=== PATIENT | female | born 1970 | race Caucasian/White ===

== ENCOUNTER 2017-03-11 02:14 | Emergency (ER) | payer OTHER ==
[2017-03-11 02:36] VITALS: BP 141/88; PULSE 70; TEMP 97.9; BMI 33.1
[2017-03-11] MEDS ORDERED: OXYCODONE/APAP 5/325MG COMBO TABLET PO ONE (03:54)
[2017-03-11] MEDS ORDERED: OXYCODONE/APAP 5/325MG COMBO TABLET ONE (04:01)
[2017-03-11] MEDS ORDERED: ACETAMINOPHEN 325 MG TABLET (FP) ONE (04:06)
[2017-03-11] MEDS ORDERED: ACETAMINOPHEN 325 MG TABLET (FP) PO ONE (04:06)
[2017-03-11 04:28] LABS: BASOPHIL 0.6 % (0-2.0); EOSINOPHIL 5.7 % (0-4.5); MCH 29.3 pg (25.7-33.7); MCHC 32.9 g/dl (32.0-36.0); MEAN PLT VOLUME 9.2 fl (7.5-11.1); NEUTROPHILS 54.2 % (42.8-82.8); PLATELET COUNT 213 K/MM3 (134-434); RDW 14.2 % (11.6-15.6); WHITE BLOOD COUNT 8.8 K/mm3 (4.0-10.0)
[2017-03-11 04:52] LABS: ALBUMIN 3.6 g/dl (3.4-5.0); ALK PHOS 43 U/L (45-117); ANION GAP 9 (8-16); BILIRUBIN,TOTAL 0.4 mg/dL (0.2-1.0); CALCIUM 8.8 mg/dL (8.5-10.1); CO2 28 mmol/L (21-32); CREATININE 0.7 mg/dL (0.55-1.02); GLUCOSE,RANDOM 185 mg/dL (74-106); SGOT/AST 15 U/L (15-37); SGPT/ALT 25 U/L (12-78); TOT PROT 6.6 g/dl (6.4-8.2)
--- NOTE | 2017-03-11 05:29 | PDOC ---
History of Present Illness - General Chief Complaint: Ear Problem Stated Complaint: LFT EAR PAIN Time Seen by Provider: 03/11/17 03:16 History Source: Patient Exam Limitations: No Limitations - History of Present Illness Initial Comments: 03/11/17 05:25 46yo Female patient w/ PmHx: HLD presents to ED c/o left ear pain and swelling. Patient states she noticed swelling 2 weeks ago but ignored it. She states pain began around 1030pm 03/10/17. Ibuprofen taken with no relief. Associated h/a and blurred vision reported. LNMP February 14. No other complaints at this time. Timing/Duration: getting worse, other (2 Weeks) Severity: moderate Modifying Factors: improves with: medication Associated Symptoms: denies: denies symptoms, chest pain, cough, diaphoresis, fever/chills, headaches, loss of appetite, malaise, nausea/vomiting, rash, seizure, shortness of breath, syncope, weakness, other Aspirin Received prior to arrival: No: no aspirin today, unknown, 81 mg x 1, 81 mg x 2, 81 mg x 3, 81 mg x 4, 325 mg x 1, provided at home, provided by EMS, provided by ED [facility] Contraindications(Core Measure): No: Allergy, Other, Active Blding w/i 24 hrs., Plavix, Receiving Warfarin Beta Feng Contraindications(Core Measure): No: Not Prescribed, Allergy, Bradycardia (HR <60bpm), Advanced Heart Block, Pacemaker, Other Past History - Travel Traveled outside of the country in the last 30 days: No Close contact w/someone who was outside of country & ill: No - Past Medical History Allergies/Adverse Reactions: Allergies Allergy/AdvReac Type Severity Reaction Status Date / Time No Known Allergies Allergy Unverified 03/11/17 02:27 Home Medications: Ambulatory Orders Ferrous Sulfate 325 mg PO DAILY 04/17/16 Metformin HCl [Metformin HCl ER] 500 mg PO PRN PRN 04/17/16 Azithromycin [Zithromax -] 250 mg PO DAILY #7 tablet 03/11/17 Tramadol HCl 50 mg PO Q6H PRN #8 tablet MDD 4 TABS 03/11/17 Diabetes: No Hypercholesterolemia: No - Surgical History Abdominal Surgery: Yes (GASTRIC BY PASS) Orthopedic Surgery: Yes (FOOT SURGERY) - Immunization History Td Vaccination: Yes - Psycho/Social/Smoking Cessation Hx Anxiety: No Suicidal Ideation: No Smoking Status: Yes Smoking History: Never smoked Number of Cigarettes Smoked Daily: 12 'Breaking Loose' booklet given: 04/17/16 Hx Alcohol Use: No Drug/Substance Use Hx: No Review of Systems - Review of Systems Able to Perform ROS?: Yes Is the patient limited [place] Citizen proficient: No HEENTM: Yes: Ear Pain All Other Systems: Reviewed and Negative *Physical Exam - Vital Signs Last Vital Signs Temp Pulse Resp BP Pulse Ox 97.9 F 70 18 141/88 99 03/11/17 02:22 03/11/17 02:22 03/11/17 02:22 03/11/17 02:22 03/11/17 02:22 - Physical Exam General Appearance: Yes: Nourished, Appropriately Dressed, Apparent Distress, Moderate Distress. No: Mild Distress, Severe Distress HEENT: positive: EOMI, MARIA ALEJANDRA, Normal ENT Inspection, Normal Voice, Symmetrical, TMs Normal, Pharynx Normal, Other (Lt Mastoid swelling and tenderness on examination.). negative: Pharyngeal Erythema, Tonsillar Exudate, Tonsillar Erythema, Nasal Congestion, Rhinorrhea, Sinus Tenderness, TM Bulging, TM Dull, TM Erythema Neck: positive: Trachea midline, Normal Thyroid, Supple. negative: Rigid, Decreased range of motion, Stridor, Lymphadenopathy (R), Lymphadenopathy (L), Rigidity Respiratory/Chest: positive: Lungs Clear, Normal Breath Sounds. negative: Chest Tender, Respiratory Distress, Accessory Muscle Use, Labored Respiration, Rapid RR Cardiovascular: positive: Regular Rhythm, Regular Rate Musculoskeletal: positive: Normal Inspection. negative: CVA Tenderness Extremity: positive: Normal Capillary Refill, Normal Inspection, Normal Range of Motion. negative: Pedal Edema, Swelling Integumentary: positive: Normal Color, Dry, Warm. 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, Fully Oriented, Alert, Normal Mood/ Affect, Normal Response, Motor Strength 01/10 ED Treatment Course - LABORATORY CBC & Chemistry Diagram: 03/11/17 04:00 03/11/17 04:00 - ADDITIONAL ORDERS Additional order review: Laboratory Results 03/11/17 04:00 Sodium 140 Potassium 3.8 Chloride 103 Carbon Dioxide 28 Anion Gap 9 BUN 14 Creatinine 0.7 Creat Clearance w eGFR > 60 Random Glucose 185 H Calcium 8.8 Total Bilirubin 0.4 AST 15 ALT 25 Alkaline Phosphatase 43 L Total Protein 6.6 Albumin 3.6 03/11/17 04:00 RBC 4.66 MCV 89.0 MCHC 32.9 RDW 14.2 MPV 9.2 Neutrophils % 54.2 Lymphocytes % 32.1 Monocytes % 7.4 Eosinophils % 5.7 H Basophils % 0.6 - RADIOLOGY Radiology Studies Ordered: Category Date Time Status HEAD CT WITHOUT CONTRAST [CT] Stat CT Scan 03/11/17 03:54 Ordered SOFT TISSUE NECK CT W/O CONTR [CT] Stat CT Scan 03/11/17 03:[address] W/O CONTRAST [CT] Stat CT Scan 03/11/17 03:54 Ordered - Medications Given in the ED: ED Medications Discontinued Medications Generic Name Dose Route Start Last Admin Trade Name Freq PRN Reason Stop Dose Admin Acetaminophen 650 mg 03/11/17 04:06 03/11/17 04:12 Tylenol - PO 03/11/17 04:07 650 mg ONCE ONE Administration Oxycodone/Acetaminophen 2 combo 03/11/17 03:54 03/11/17 04:06 Percocet 5/325 - PO 03/11/17 03:55 Not Given ONCE ONE *DC/Admit/Observation/Transfer Diagnosis at time of Disposition: Lymphadenopathy of left cervical region - Discharge Dispostion Disposition: HOME Condition at time of disposition: Stable Admit: No - Prescriptions Prescriptions: Tramadol HCl 50 mg PO Q6H PRN #8 tablet MDD 4 TABS PRN Reason: Severe Pain Azithromycin [Zithromax -] 250 mg PO DAILY #7 tablet - Patient Instructions Printed Discharge Instructions: DI for Lymphadenopathy Additional Instructions: FOLLOW UP WITH YOUR PRIMARY CARE PROVIDER. TAKE MEDICATIONS PRESCRIBED. APPLY WARM COMPRESS TO AFFECTED AREA NEEDED FOR COMFORT. TYLENOL OR MOTRIN FOR PAIN. TRAMADOL FOR SEVERE PAIN NEEDED. DO NOT DRINK ALCOHOL, DRIVE, OR OPERATE HEAVY MACHINERY WHILE TAKING TRAMADOL. Print Language: [place] - Post Discharge Activity Work/School Note: Back to Work
[2017-03-11] MEDS ORDERED: LIDOCAINE HCL 1%, 10 MG/ML (50 mL VIAL) INF ONE (06:32)
[2017-03-11] MEDS ORDERED: cefTRIAXone SODIUM 1 GM VIAL ONE (06:44)
--- NOTE | 2017-03-14 13:37 | PDOC ---
Patient Follow-up (Call Back) - Post ED Follow - Up Disposition at time of original discharge: HOME Reason for Call Back: Radiology (CT of soft tissue neck done on 03/11/17 in the left parotid gland. Differential diagnosis includes and intraparotid lymph nodes and a few amorphic adenoma among other possibilities. Correlate with contrast-enhanced MRI would be the study of choice for further imaging. CT of brain without IV contrast no evidence of focal intracranial lesion or hemorrhage is seen mild ethmoid sinusitis. Minimal volume loss which is nonspecific per Dr. Parkinson, CAT scan of temporal bones without IV contrast revealed no evidence of mastoiditis or otitis media bilaterally. Mild chronic sinusitis. Questionable thickening of the right tympanic membrane versus debris' s is in the right external auditory canal. Will have patient follow up with ear nose and throat for further evaluation of questionable lesion and left parotid gland. Patient was called left message for patient to call back to discuss need for follow up)
== END 2017-03-11 06:54 | disposition home or self-care (01) ==
LOC: JER 02:14
DX: R59.0 Localized enlarged lymph nodes (principal)
CPT/HCPCS: 36415; 70450-TC; 70480-TC; 70490-TC; 80053; 85025; 99282-25

== ENCOUNTER 2018-12-05 23:06 | Emergency (ER) | payer OTHER ==
[2018-12-05 23:15] VITALS: BP 119/72; PULSE 69; TEMP 97.7; BMI 33.7
--- NOTE | 2018-12-06 01:42 | PDOC ---
History of Present Illness - General Chief Complaint: Respiratory Stated Complaint: DIFFICULTY BREATHING Time Seen by Provider: 12/06/18 01:42 Past History - Past Medical History Allergies/Adverse Reactions: Allergies Allergy/AdvReac Type Severity Reaction Status Date / Time No Known Allergies Allergy Unverified 03/11/17 02:27 Home Medications: Ambulatory Orders Ferrous Sulfate 325 mg PO DAILY 04/17/16 metFORMIN HCL [Metformin ER Osmotic] 500 mg PO PRN PRN 04/17/16 Azithromycin [Zithromax -] 250 mg PO DAILY #7 tablet 03/11/17 Tramadol HCl 50 mg PO Q6H PRN #8 tablet MDD 4 TABS 03/11/17 COPD: No Diabetes: No (NIddm) Hypercholesterolemia: No - Surgical History Abdominal Surgery: Yes (GASTRIC BY PASS) Orthopedic Surgery: Yes (FOOT SURGERY) - Immunization History Td Vaccination: Yes - Suicide/Smoking/Psychosocial Hx Smoking Status: Yes Smoking History: Current every day smoker Have you smoked in the past 12 months: Yes Number of Cigarettes Smoked Daily: 20 Information on smoking cessation initiated: Yes 'Breaking Loose' booklet given: 04/17/16 Hx Alcohol Use: No Drug/Substance Use Hx: No *Physical Exam - Vital Signs Last Vital Signs Temp Pulse Resp BP Pulse Ox 97.7 F 69 20 119/72 98 12/05/18 23:11 12/05/18 23:11 12/05/18 23:11 12/05/18 23:11 12/05/18 23:11
== END 2018-12-06 02:14 | disposition left against medical advice (07) ==
LOC: JER 23:06
DX: Z53.21 Procedure and treatment not carried out due to patient leaving prior to being seen by health care provider (principal)
CPT/HCPCS: 99281-25

== ENCOUNTER 2019-10-24 09:11 | Emergency (ER) | payer OTHER ==
[2019-10-24 09:21] VITALS: BMI 32.5
--- NOTE | 2019-10-24 09:54 | PDOC ---
History of Present Illness - General Chief Complaint: Pain Stated Complaint: PAIN Time Seen by Provider: 10/24/19 09:38 - History of Present Illness Initial Comments: 10/24/19 10:46 The patient is a 49 year old female with a history of DM, obesity, Gastric Sleeve who presents for evaluation of abdominal pain and back pain. The patient reports a 2 day history of right lower quadrant abdominal pain with associated right sided lower back pain prompting her presentation to the ED for further evaluation. She notes that the patient is constant and sharp in quality and denies any relieving factors. She reports a 1 day history of associated constipation but otherwise denies fevers, chills, SOB, chest pain, nausea, vomiting, or changes with urination. Past History - Past Medical History Allergies/Adverse Reactions: Allergies Allergy/AdvReac Type Severity Reaction Status Date / Time No Known Allergies Allergy Unverified 10/24/19 09:18 Home Medications: Ambulatory Orders metFORMIN HCL [Metformin ER Osmotic] 500 mg PO DAILY 04/17/16 Atorvastatin Ca [Lipitor] 40 mg PO HS 10/24/19 Cholecalciferol (Vitamin D3) [Vitamin D3] 5,000 unit PO DAILY 10/24/19 Multivitamin [One-Daily Multi-Vitamin] 1 each PO DAILY 10/24/19 [place]-3 Fatty Acids/Fish Oil [Fish Oil 1,000 mg Capsule] 1 each PO DAILY Pantoprazole Sodium 40 mg PO DAILY 10/24/19 COPD: No Diabetes: No (boarderline) Hypercholesterolemia: No - Surgical History Abdominal Surgery: Yes (GASTRIC BY PASS) Orthopedic Surgery: Yes (FOOT SURGERY) - Immunization History Td Vaccination: Yes - Psycho Social/Smoking Cessation Hx Smoking Status: Yes Smoking History: Current every day smoker Have you smoked in the past 12 months: Yes Number of Cigarettes Smoked Daily: 20 Information on smoking cessation initiated: No 'Breaking Loose' booklet given: 04/17/16 Hx Alcohol Use: No Drug/Substance Use Hx: No Review of Systems - Review of Systems Comments:: 10/24/19 10:49 Constitutional: No fevers, chills, fatigue, malaise HEENT: No Rhinorrhea, nasal congestion, visual changes Cardiovascular: No chest pain, syncope, palpitations, lightheadedness Respiratory: No Cough, SOB, Hemoptysis, Gastrointestinal: Abdominal pain, Constipation, No Nausea, Vomiting, Diarrhea, Melena Genitourinary: No Dysuria, Frequency, Urgency, Hesitancy, Hematuria, Flank pain Musculoskeletal: No Myalgia, arthralgia Skin: No rashes, itching, bruising, pallor Neurologic: No Headache, Dizziness, Numbness, Weakness, or Tingling Psychiatric: No Hallucinations. No SI or HI *Physical Exam - Vital Signs Last Vital Signs Temp Pulse Resp BP Pulse Ox 98.1 F 70 18 122/78 97 10/24/19 09:15 10/24/19 09:15 10/24/19 09:15 10/24/19 09:15 10/24/19 09:15 - Physical Exam 10/24/19 10:55 General Appearance: Nourished. No Apparent Distress HEENT: EOMI, MARIA ALEJANDRA. No Pharyngeal Erythema, Tonsillar Exudate, Tonsillar Erythema Neck: No Cervical Lymphadenopathy Respiratory/Chest: Lungs Clear, Normal Breath Sounds. No Crackles, Rales, Rhonchi, Wheezing Cardiovascular: Regular Rhythm, Regular Rate. No Murmur, Gallops, Rubs Gastrointestinal/Abdominal: Normal Bowel Sounds, RLQ tenderness to palpation with guarding noted on exam. No Rebound, Musculoskeletal: No CVA Tenderness Extremity: Normal Capillary Refill Integumentary: Normal Color, Dry, Warm Neurologic: Fully Oriented, Alert, Normal Mood/Affect, Normal Response, ED Treatment Course - LABORATORY CBC & Chemistry Diagram: 10/24/19 10:39 10/24/19 12:49 Medical Decision Making - Medical Decision Making 10/24/19 10:57 The patient is a 49 year old female with a history of DM, obesity, Gastric Sleeve who presents for evaluation of abdominal pain and back pain. Given the patient's history and physical exam, we will obtain a cbc, cmp, lipase, ua, ekg , CT abdomen/pelvis to evaluate further. We will treat with iv fluids and analgesia and continue to monitor and reassess while here in the ED. 10/24/19 14:20 CBC, cmp, lipase, ua were unremarkable. CT abdomen/pelvis did not demonstrate any acute findings as read by our radiologist and the patient was provided a copy of the results. The patient was reassessed and reports improvement in their symptoms. We are comfortable discharging the patient home in stable condition. Patient made aware of impression and plan, return precautions discussed including but not limited to worsening pain or symptoms, fevers, or signs of infection, chest pain, respiratory distress, inability to tolerate oral intake, dehydration, syncope, or neurologic changes. The patient is to follow up with PMD as recommended within 1 week, follow up information provided and the patient will call for an appointment. The patient is to take medications as instructed for duration of time and continue with supportive care , avoid triggers and precipitants. Patient is safe for outpatient follow-up. Discharge - Discharge Information Problems reviewed: Yes Clinical Impression/Diagnosis: Abdominal pain Qualifiers: Abdominal location: unspecified location Qualified Code(s): R10.9 - Unspecified abdominal pain Condition: Stable Disposition: HOME - Admission No - Follow up/Referral Referrals: Maryana Kyle [Primary Care Provider] - - Patient Discharge Instructions Patient Printed Discharge Instructions: DI for Abdominal Pain-Adult Additional Instructions: 1) Please follow-up with your primary care doctor in the next 2-3 days. Please call tomorrow to schedule a follow up appointment. If you cannot follow up with your doctor within 1 week please return to the Emergency Department for any urgent issues. 2) You were given a copy of the tests performed today. Please bring the results with you and review them with your primary care doctor. Your laboratory / imaging results did not have any acute findings in the ER. 3) If you have any worsening of symptoms or any other concerns, please return to the ER immediately. Return if worsening symptoms including fevers, headache, vomiting, visual or hearing disturbances, abdominal pain, chest pain, shortness of breath, syncope, dehydration, inability to take things by mouth/vomiting, altered mental status, or worsening concerning symptoms. 4) Please continue taking your home medications as directed. Side effects may include upset stomach, abdominal pain, vomiting, or diarrhea. Do not drink alcohol with your medications. - Post Discharge Activity
[2019-10-24] MEDS ORDERED: morphine CARPU-JECT 4 MG/1 ML DISP.SYRIN IVPUSH ONE (10:30)
[2019-10-24] MEDS ORDERED: SODIUM CHLORIDE 1,000 ML IV STA (10:30)
[2019-10-24 11:16] LABS: BASO % 0.9 % (0-2.0); EOS % 1.6 % (0-4.5); HEMATOCRIT 43.4 % (32.4-45.2); HEMOGLOBIN 14.5 GM/dL (10.7-15.3); LYMPH % 29.3 % (8-40); MCH 29.1 pg (25.7-33.7); MCHC 33.4 g/dl (32.0-36.0); MEAN CELL VOLUME 87.2 fl (80-96); MEAN PLT VOLUME 9.9 fl (7.5-11.1); MONO % 7.5 % (3.8-10.2); NEUT % 60.7 % (42.8-82.8); PLATELET COUNT 292 K/MM3 (134-434); RBC 4.98 M/mm3 (3.60-5.2); RDW 15.3 % (11.6-15.6); WHITE BLOOD COUNT 9.9 K/mm3 (4.0-10.0)
[2019-10-24] MEDS ORDERED: MORPHINE SULFATE 2 MG/ML VIAL ONE (11:16)
[2019-10-24 11:29] LABS: INR 0.93 (0.83-1.09)
[2019-10-24 11:32] LABS: ACTIVATED PTT 31.2 SECONDS (25.2-36.5)
[2019-10-24 12:02] LABS: ALBUMIN 3.6 g/dl (3.4-5.0); BILIRUBIN,TOTAL 0.3 mg/dL (0.2-1); BLOOD UREA NITROGEN 15.8 mg/dL (7-18); CALCIUM 9.1 mg/dL (8.5-10.1); CREATININE 0.7 mg/dL (0.55-1.3); TOT PROT 7.6 g/dl (6.4-8.2)
[2019-10-24 12:07] LABS: POTASSIUM 6.8 mmol/L (3.5-5.1)
--- NOTE | 2019-10-24 12:42 | PDOC ---
Documentation entered by Jatin Hernandez SCRIBE, acting as scribe for Lisa Rene MD. Lisa Rene MD: This documentation has been prepared by the Mary calle Nirvannie, SCRIBE, under my direction and personally reviewed by me in its entirety. I confirm that the documentation accurately reflects all work, treatment, procedures, and medical decision making performed by me. Attending Attestation - Resident Resident Name: Ricki Syed - ED Attending Attestation I have performed the following: I have examined & evaluated the patient, The case was reviewed & discussed with the resident, I agree w/resident's findings & plan, Exceptions are as noted - HPI HPI: 10/24/19 10:56 The patient is a 49 year old female, with a significant past medical history of HLD, DM, and obesity who presents to the emergency department with 2 days of constant, sharp right lower abdominal pain and right lower back pain. She notes associated 1 day of constipation secondary to his symptoms. Allergies: NKDA Past surgical history: s/p gastric sleeve Primary Care Physician: Maryana Bueno - Physicial Exam PE: GENERAL: Awake, alert, and fully oriented, in no acute distress. Obese. Appears uncomfortable, lying on her side HEAD: No signs of trauma EYES: PERRLA, EOMI, sclera anicteric, conjunctiva clear ENT: Auricles normal inspection, hearing grossly normal, nares patent, oropharynx clear without exudates. Dry mucosa NECK: Normal ROM, supple, no lymphadenopathy, JVD, or masses LUNGS: Breath sounds equal, clear to auscultation bilaterally. No wheezes, and no crackles HEART: Regular rate and rhythm, normal S1 and S2, no murmurs, rubs or gallops ABDOMEN: Soft, +BLQ tenderness with guarding, normoactive bowel sounds. No rebound. No masses EXTREMITIES: Normal range of motion, no edema. No clubbing or cyanosis. No cords, erythema, or tenderness NEUROLOGICAL: Cranial nerves II through XII grossly intact. Normal speech, normal gait. Motor and sensation intact SKIN: Warm, dry, normal turgor, no rashes or lesions noted. - Medical Decision Making Pt with BLQ tenderness, worse in RLQ. CT to r/o appendicitis vs diverticulitis.
[2019-10-24 13:16] LABS: URINE APPEARANCE CLEAR; URINE BILIRUBIN NEGATIVE (NEGATIVE); URINE COLOR YELLOW; URINE GLUCOSE (UA) NEGATIVE (NEGATIVE); URINE KETONE NEGATIVE (NEGATIVE); URINE LEUK ESTERASE NEGATIVE (NEGATIVE); URINE NITRITE NEGATIVE (NEGATIVE); URINE PROTEIN NEGATIVE (NEGATIVE); URINE UROBILINOGEN 0.2 mg/dL (0.2-1.0)
[2019-10-24 13:18] LABS: BLOOD UREA NITROGEN 13.9 mg/dL (7-18); CALCIUM 8.6 mg/dL (8.5-10.1); CREATININE 0.6 mg/dL (0.55-1.3); POTASSIUM 4.2 mmol/L (3.5-5.1)
[2019-10-24 14:34] VITALS: BP 138/59; PULSE 64; TEMP 97.9
--- NOTE | 2019-10-25 10:08 | EKG ---
Test Reason : Blood Pressure : / mmHG Vent. Rate : 056 BPM Atrial Rate : 056 BPM P-R Int : 160 ms QRS Dur : 092 ms QT Int : 434 ms P-R-T Axes : 049 -10 028 degrees QTc Int : 418 ms SINUS BRADYCARDIA Abnormal ECG NO PREVIOUS ECGS AVAILABLE Confirmed by Rica Riojas ([id number]) on 10/25/2019 10:08:15 AM Referred By: Confirmed By:Rica Riojas
== END 2019-10-24 14:25 | disposition home or self-care (01) ==
LOC: JER 09:11
PROC: 3E0337Z Introduction of Electrolytic and Water Balance Substance into Peripheral Vein, Percutaneous Approach (ICD-10-PCS; principal; 2019-10-24)
DX: R10.9 Unspecified abdominal pain (principal); E11.9 Type 2 diabetes mellitus without complications; Z79.84 Long term (current) use of oral hypoglycemic drugs; E78.5 Hyperlipidemia, unspecified; E66.9 Obesity, unspecified; Z68.32 Body mass index [BMI] 32.0-32.9, adult; Z98.84 Bariatric surgery status
CPT/HCPCS: 36415; 74177-TC; 80048; 80053; 81003; 82550; 82553; 83690; 84484; 85025; 85610; 85730; 86900; 87086; 87186; 93005; 93010; 96360; 99285-25; J7030; Q9967

== ENCOUNTER 2019-11-03 18:00 | Emergency (ER) | payer OTHER ==
[2019-11-03 18:09] VITALS: TEMP 98.5; BMI 33.5
--- NOTE | 2019-11-03 18:33 | PDOC ---
History of Present Illness - General Chief Complaint: Pain Stated Complaint: ABD PAIN History Source: Patient Exam Limitations: No Limitations - History of Present Illness Initial Comments: 11/03/19 18:33 Patient is a 49-year-old female with history of gastric sleeve, DM, obesity, c/ o lower abd pain x 10 days. Patient states that initially the pain started on the right lower quadrant and so came to the emergency room on 10/24 for evaluation. She had a work-up which included labs, UA, CT abdomen pelvis with IV contrast. Her labs were negative and so was discharged home, CT scan showed appendicolith but no acute appendicitis, diverticulosis but no diverticulitis, free fluid in the in the cul-de-sac and a 1.7 cm left ovarian cyst. Patient states few days later she was called and told that her urine had E. coli and was put on Keflex for 7 days. She just completed her course of antibiotics but still continues to have pain. She describes the pain as continuous, sharp, achy in her lower abdomen occasionally radiating to bilateral flank. She has been treating the pain with occasional Advil with no relief of symptoms last dose was yesterday. States she had one episode of vomiting this morning. States that she called her primary care doctor but was told to come to the emergency room. Denies any fever, chills, nausea, dysuria. Not sexually active in the past 4 years. PMD: Dr. Kyle PMHX: As above PSOCHX: neg etoh, drug, cig All: NKDA GENERAL/CONSTITUTIONAL: [No fever or chills. No weakness. No weight change.] HEAD, EYES, EARS, NOSE AND THROAT: [No change in vision. No ear pain or discharge. No sore throat.] CARDIOVASCULAR: [No chest pain or shortness of breath.] RESPIRATORY: [No cough, wheezing, or hemoptysis.] GASTROINTESTINAL: [No nausea, (+) vomiting, (-) diarrhea or constipation. No rectal bleeding.] GENITOURINARY: [No dysuria, frequency, or change in urination.] MUSCULOSKELETAL: [No joint or muscle swelling or pain. No neck or back pain.] SKIN AND BREASTS: [No rash or easy bruising.] NEUROLOGIC: [No headache, vertigo, loss of consciousness, or loss of sensation.] PSYCHIATRIC: [No depression or anxiety.] ENDOCRINE: [No increased thirst. No abnormal weight change.] HEMATOLOGIC/LYMPHATIC: [No anemia, easy bleeding, or history of blood clots.] ALLERGIC/IMMUNOLOGIC: [No hives or skin allergy. No latex allergy.] GENERAL: [The patient is awake, alert, and fully oriented, in no acute distress. ] HEAD: [Normal with no signs of trauma.] EYES: [Pupils equal, round and reactive to light, extraocular movements intact, sclera anicteric, conjunctiva clear.] ENT: [Ears normal, nares patent, oropharynx clear without exudates. Moist mucous membranes.] NECK: [Normal range of motion, supple without lymphadenopathy, JVD, or masses.] LUNGS: [Breath sounds equal, clear to auscultation bilaterally. No wheezes, and no crackles.] HEART: [Regular rate and rhythm, normal S1 and S2 without murmur, rub.] ABDOMEN: [Soft, (+)tenderness to the lower abd marie LLQ, normoactive bowel sounds. No guarding, no rebound. No masses.] EXTREMITIES: [Normal range of motion, no edema. No clubbing or cyanosis. No cords, erythema, or tenderness.] NEUROLOGICAL: [Cranial nerves II through XII grossly intact. Normal speech, normal gait.] PSYCH: [Normal mood, normal affect.] SKIN: [Warm, Dry, normal turgor, no rashes or lesions noted.] Past History - Past Medical History Allergies/Adverse Reactions: Allergies Allergy/AdvReac Type Severity Reaction Status Date / Time No Known Allergies Allergy Unverified 11/03/19 18:09 Home Medications: Ambulatory Orders metFORMIN HCL [Metformin ER Osmotic] 500 mg PO DAILY 04/17/16 Atorvastatin Ca [Lipitor] 40 mg PO HS 10/24/19 Cholecalciferol (Vitamin D3) [Vitamin D3] 5,000 unit PO DAILY 10/24/19 Multivitamin [One-Daily Multi-Vitamin] 1 each PO DAILY 10/24/19 [place]-3 Fatty Acids/Fish Oil [Fish Oil 1,000 mg Capsule] 1 each PO DAILY Pantoprazole Sodium 40 mg PO DAILY 10/24/19 COPD: No Diabetes: No (NIddm) Hypercholesterolemia: No - Surgical History Abdominal Surgery: Yes (GASTRIC BY PASS) Orthopedic Surgery: Yes (FOOT SURGERY) - Immunization History Td Vaccination: Yes - Psycho Social/Smoking Cessation Hx Smoking Status: Yes Smoking History: Never smoked Have you smoked in the past 12 months: Yes Number of Cigarettes Smoked Daily: 20 Information on smoking cessation initiated: No 'Breaking Loose' booklet given: 04/17/16 Hx Alcohol Use: No Drug/Substance Use Hx: No *Physical Exam - Vital Signs Last Vital Signs Temp Pulse Resp BP Pulse Ox 98.5 F 71 19 144/72 100 11/03/19 18:08 11/03/19 18:08 11/03/19 18:08 11/03/19 18:08 11/03/19 18:08 ED Treatment Course - LABORATORY CBC & Chemistry Diagram: 11/03/19 19:30 11/03/19 19:30 Medical Decision Making - Medical Decision Making 11/03/19 18:33 Patient is a 49-year-old female with history of gastric sleeve, DM, obesity, c/ o lower abd pain x 10 days. Patient states that initially the pain started on the right lower quadrant and so came to the emergency room on 10/24 for evaluation. She had a work-up which included labs, UA, CT abdomen pelvis with IV contrast. Her labs were negative and so was discharged home, CT scan showed appendicolith but no acute appendicitis, diverticulosis but no diverticulitis, free fluid in the in the cul-de-sac and a 1.7 cm left ovarian cyst. Patient states few days later she was called and told that her urine had E. coli and was put on Keflex for 7 days. She just completed her course of antibiotics but still continues to have pain. She describes the pain as continuous, sharp, achy in her lower abdomen occasionally radiating to bilateral flank. She has been treating the pain with occasional Advil with no relief of symptoms last dose was yesterday. States she had one episode of vomiting this morning. States that she called her primary care doctor but was told to come to the emergency room. Denies any fever, chills, nausea, dysuria. DDX: Appendicitis, diverticulitis, ruptured ovarian cyst, Will repeat labs and CT scan. Toradol 30 mg Discharge - Discharge Information Problems reviewed: Yes Clinical Impression/Diagnosis: Abdominal pain Qualifiers: Abdominal location: unspecified location Qualified Code(s): R10.9 - Unspecified abdominal pain Condition: Stable Disposition: HOME - Follow up/Referral Referrals: Maryana Kyle [Primary Care Provider] - - Patient Discharge Instructions Patient Printed Discharge Instructions: DI for Abdominal Pain-Adult Additional Instructions: Your Discharge Instructions: You must call primary care physician within 24 hours to arrange follow-up. Return to the Emergency Department with any new, persistent or worsening symptoms, for fever, chills, SOB, dizziness or any other concerning changes that may occur. We have provided you with a copy of your CAT scan report which shows adrenal nodules. Please present this CAT scan to your primary care doctor so that nodules can be followed. - Post Discharge Activity
[2019-11-03] MEDS ORDERED: KETOROLAC TROMETHAMINE 30 MG/1 ML VIAL IM ONE (18:46)
[2019-11-03] MEDS ORDERED: KETOROLAC TROMETHAMINE 30 MG/1 ML VIAL ONE (18:53)
[2019-11-03 19:49] VITALS: PULSE 75
--- NOTE | 2019-11-03 19:51 | PDOC ---
*Physical Exam - Vital Signs Last Vital Signs Temp Pulse Resp BP Pulse Ox 98.5 F 75 18 144/72 99 11/03/19 18:08 11/03/19 19:48 11/03/19 19:48 11/03/19 18:08 11/03/19 19:48 ED Treatment Course - Medications Given in the ED: ED Medications Discontinued Medications Generic Name Dose Route Start Last Admin Trade Name Freq PRN Reason Stop Dose Admin Ketorolac Tromethamine 30 mg 11/03/19 18:46 11/03/19 19:00 Toradol Injection - IM 11/03/19 18:47 30 mg ONCE ONE Administration Medical Decision Making - Medical Decision Making 11/03/19 19:50 49 yo female w/ recent uti and lower abd pain her ew/ lower abd pain LLQtender on exam Recent CT shows appendecoliths and diverticulosis Will eval w/ repeat CTAP / UA for Appendicitis vs Diverticiulitis vs cystitis I have personally overseen this case with provider and agree with their note and plan of care Discharge - Discharge Information Problems reviewed: Yes Clinical Impression/Diagnosis: Abdominal pain - Follow up/Referral Referrals: Maryana Kyle [Primary Care Provider] - - Patient Discharge Instructions - Post Discharge Activity
[2019-11-03 20:03] LABS: BASO % 0.4 % (0-2.0); EOS % 2.2 % (0-4.5); HEMATOCRIT 41.2 % (32.4-45.2); HEMOGLOBIN 13.8 GM/dL (10.7-15.3); LYMPH % 35.1 % (8-40); MCHC 33.4 g/dl (32.0-36.0); MEAN CELL VOLUME 86.8 fl (80-96); MEAN PLT VOLUME 9.4 fl (7.5-11.1); MONO % 7.2 % (3.8-10.2); NEUT % 55.1 % (42.8-82.8); PLATELET COUNT 245 K/MM3 (134-434); RBC 4.75 M/mm3 (3.60-5.2); RDW 14.2 % (11.6-15.6); WHITE BLOOD COUNT 10.1 K/mm3 (4.0-10.0)
[2019-11-03 20:36] LABS: ALBUMIN 3.8 g/dl (3.4-5.0); BILIRUBIN,TOTAL 0.3 mg/dL (0.2-1); BLOOD UREA NITROGEN 17.3 mg/dL (7-18); CALCIUM 9.3 mg/dL (8.5-10.1); CREATININE 0.7 mg/dL (0.55-1.3); POTASSIUM 3.9 mmol/L (3.5-5.1); TOT PROT 7.2 g/dl (6.4-8.2)
[2019-11-03 20:43] LABS: URINE APPEARANCE CLEAR; URINE BILIRUBIN NEGATIVE (NEGATIVE); URINE COLOR YELLOW; URINE GLUCOSE (UA) NEGATIVE (NEGATIVE); URINE KETONE NEGATIVE (NEGATIVE); URINE LEUK ESTERASE NEGATIVE (NEGATIVE); URINE NITRITE NEGATIVE (NEGATIVE); URINE PROTEIN NEGATIVE (NEGATIVE); URINE UROBILINOGEN 0.2 mg/dL (0.2-1.0)
[2019-11-04 00:11] VITALS: BP 145/86
== END 2019-11-03 23:30 | disposition home or self-care (01) ==
LOC: JER 18:00
PROC: 3E0233Z Introduction of Anti-inflammatory into Muscle, Percutaneous Approach (ICD-10-PCS; principal; 2019-11-03)
DX: R10.9 Unspecified abdominal pain (principal); E11.9 Type 2 diabetes mellitus without complications; Z98.84 Bariatric surgery status; E66.9 Obesity, unspecified; Z87.891 Personal history of nicotine dependence
CPT/HCPCS: 36415; 74177-TC; 80053; 81003; 83690; 84703; 85025; 87077; 87086; 99285-25

== ENCOUNTER 2020-03-05 00:34 | Emergency (ER) | payer OTHER ==
[2020-03-05 01:17] VITALS: BMI 30.9
[2020-03-05] MEDS ORDERED: ACETAMINOPHEN 325 MG TABLET (FP) PO ONE (01:52)
[2020-03-05] MEDS ORDERED: LIDOCAINE 5% TOPICAL PATCH TP ONE (01:52)
[2020-03-05] MEDS ORDERED: METHOCARBAMOL 500 MG TABLET PO ONE (01:54)
--- NOTE | 2020-03-05 01:55 | PDOC ---
History of Present Illness - General Chief Complaint: Injury Stated Complaint: FALL Time Seen by Provider: 03/05/20 01:32 History Source: Patient Exam Limitations: No Limitations - History of Present Illness Initial Comments: Pt is a 49 yo F, with PMH of NIDDM, obesity, and gastric sleeve, who is presenting via private car from home for complaints of R sided back and wrist pain after a fall 2 days ago. Pt states she was at [facility], when she attempted to push a shopping cart up the escalator, falling forward onto her R side when she was at the top. Pt has been using motrin at home without significant relief. Pt has been ambulatory at home and been able to perform all her daily tasks. Pt denies any recent fevers/chills, headache, vision changes, syncope, chest pain, palpitations, SOB, nausea/vomiting, abdominal pain, urinary symptoms, incontinence of urine or stool, diarrhea/constipation, parasthesias or extremity weakness, or leg swelling. Allergies: NKDA PCP: Dr. Kyle Social: Pt denies any cigarette, alcohol, or drug use. Pt denies any recent travel or sick contacts. Surgical: gastric sleeve Family: no relevant history. 03/15/20 09:00 Past History - Travel History Traveled outside of the country in the last 30 days: No Close contact w/someone who was outside of country & ill: No - Medical History Allergies/Adverse Reactions: Allergies Allergy/AdvReac Type Severity Reaction Status Date / Time No Known Allergies Allergy Unverified 03/05/20 01:12 Home Medications: Ambulatory Orders metFORMIN HCL [Metformin ER Osmotic] 500 mg PO DAILY 04/17/16 Atorvastatin Ca [Lipitor] 40 mg PO HS 10/24/19 Cholecalciferol (Vitamin D3) [Vitamin D3] 5,000 unit PO DAILY 10/24/19 Multivitamin [One-Daily Multi-Vitamin] 1 each PO DAILY 10/24/19 [place]-3 Fatty Acids/Fish Oil [Fish Oil 1,000 mg Capsule] 1 each PO DAILY 10/24/19 Pantoprazole Sodium 40 mg PO DAILY 10/24/19 Methocarbamol [Robaxin -] 500 mg PO BID PRN #10 tablet 03/05/20 COPD: No Diabetes: No (NIddm) Hypercholesterolemia: No - Surgical History Abdominal Surgery: Yes (GASTRIC BY PASS) Orthopedic Surgery: Yes (FOOT SURGERY) - Immunization History Td Vaccination: Yes - Psycho-Social/Smoking History Smoking Status: Yes Smoking History: Never smoked Have you smoked in the past 12 months: Yes Number of Cigarettes Smoked Daily: 20 'Breaking Loose' booklet given: 04/17/16 - Substance Abuse Hx (Audit-C & DAST Scrn) How often the patient has a drink containing alcohol: Never Score: In Men: 4 or > Positive; In Women: 3 or > Positive: 0 Screen Result (Pos requires Nsg. Audit-10AR): Negative Trauma Specific PMHX - Complaint Specific PMHX Arthritis: No Back Injury: No Neck Injury: No Hx Sacro Iliac Joint Dysfunction: No Review of Systems - Review of Systems Able to Perform ROS?: Yes Is the patient limited [place] proficient: No Constitutional: Yes: Weight Stable. No: Chills, Diaphoresis, Fever, Loss of Appetite, Malaise, Weakness HEENTM: No: Recent change in vision, Nose Congestion, Throat Pain, Throat Swelling Respiratory: No: Cough, Orthopnea, Shortness of Breath Cardiac (ROS): No: Chest Pain, Edema, Irregular Heart Rate, Lightheadedness, Palpitations, Syncope, Chest Tightness ABD/GI: No: Constipated, Nausea, Poor Appetite, Poor Fluid Intake, Vomiting, Abdominal cramping : No: Burning, Dysuria, Frequency, Flank Pain, Pain, Urgency Musculoskeletal: Yes: Back Pain, Joint Pain, Muscle Pain. No: Joint Swelling, Muscle Weakness, Neck Pain, Joint Stiffness Integumentary: No: Bruising, Change in Color, Rash Neurological: No: Headache, Numbness, Paresthesia, Weakness, Unsteady Gait, Dizziness Psychiatric: No: Change in Appetite Endocrine: No: Change in Weight Hematologic/Lymphatic: No: Anemia, Blood Clots, Easy Bleeding, Easy Bruising All Other Systems: Reviewed and Negative *Physical Exam - Vital Signs Last Vital Signs Temp Pulse Resp BP Pulse Ox 98.4 F 66 18 142/77 99 03/05/20 01:08 03/05/20 01:08 03/05/20 01:08 03/05/20 01:08 03/05/20 01:08 - Physical Exam Vitals stable, pt afebrile. Pt in NAD, obese body habitus. Pt ambulatory in ED without assistance. Pt alert and oriented x3. family practice physician generally intact, muscular strength and sensation intact. No midline spinal tenderness, step-offs, or crepitus. +paraspinal R lower back pain +R wrist pain over ulnar aspect, no TTP in snuffbox. ROM intact. +radial pulses equal bilaterally Head normocephalic, atraumatic. Eyes PERRLA, EOMI. Oropharynx without erythema or exudates, no LAD b/l. No nasal congestion. Hearing intact. Clear heart sounds, S1/S2, no JVD, b/l pedal edema, or heart murmur. Clear lung sounds, no respiratory distress, wheezes, crackles, or accessory muscle use. No abdominal or CVA tenderness to palpation, no rebound, no guarding. Abdomen soft, non-distended, and with normoactive bowel sounds. Skin without jaundice or rash. 03/15/20 09:33 ED Treatment Course - RADIOLOGY Radiology Studies Ordered: Category Date Time Status WRIST W/HAND-RIGHT* [RAD] Stat Radiology 03/05/20 01:52 Ordered Medical Decision Making - Medical Decision Making Pt was seen at bedside, also will be seen by attending Dr. Salgado. Pt presenting with paraspinal back pain and R wrist pain. No midline TTP, no warning signs (no fever, weakness, incontinence). Likely MSK strain/back spasm. Will obtain X-ray of R wrist to eval for fx. Provided tylenol, robaxin, lidocaine patch for improvement of pain and back spasm. Will continue to reassess pt and monitor for symptomatic improvement. 03/15/20 09:38 X-ray of R wrist negative for fx (read in ED with Dr. Salgado) Provided warm compress and encouraged early mobility. Stretching exercises. Pt improved after interventions. Pt safe for f/u with PCP and ortho as needed for continued wrist/hand pain. Strict return precautions provided with pt understanding. 03/15/20 09:45 Discharge - Discharge Information Problems reviewed: Yes Clinical Impression/Diagnosis: Wrist pain, right Low back pain Qualifiers: Chronicity: acute Back pain laterality: bilateral Sciatica presence: with sci atica Sciatica laterality: sciatica of right side Qualified Code(s): M54.41 - Lumbago with sciatica, right side Condition: Good Disposition: HOME - Admission No - Additional Discharge Information Prescriptions: Methocarbamol [Robaxin -] 500 mg PO BID PRN #10 tablet PRN Reason: Back Pain - Follow up/Referral Referrals: Maryana Kyle [Primary Care Provider] - Abel Villalobos MD [Staff Physician] - - Patient Discharge Instructions Patient Printed Discharge Instructions: DI for Wrist Sprain, How to Prevent Falls, DI for Back Spasm Additional Instructions: You were seen in the ER today for back pain and wrist pain. The results of your imaging today did not show a fracture and your pain is likely due to back spasm and wrist sprain. Please follow-up with your primary care doctor within 1-2 days, and orthopedics as needed, to discuss your visit and make sure your symptoms have improved. Please return to the ER if you have any worsening pain, development of fevers or chills, loss of consciousness, inability to tolerate food or fluids, or any other concerns. I have sent medications to your pharmacy. Please take these medications as prescribed. You can take tylenol or motrin every 4-6 hours as needed for pain. - Post Discharge Activity
--- NOTE | 2020-03-05 01:57 | PDOC ---
Attending Attestation - Resident Resident Name: RosanneSenait - ED Attending Attestation I have performed the following: I have examined & evaluated the patient, The case was reviewed & discussed with the resident, I agree w/resident's findings & plan (rosanne) - HPI HPI: 03/05/20 05:18 Pt was in [employer] 2 days back and she fell off the top of the escalator because she was pushing her shopping cart up the scalator, which was not recommended nor allowed, but she states that the elevators at the [employer] were ot of order "and everyone was" pushing shopping carts up the escalators. Pt fell onto her right side and complains of pain as well as right wrist pain. - Physicial Exam PE: 03/05/20 05:22 Pt has pain on her right back (paraspinal area) Pt has no spine stepoffs; no rashes or bruises or abrasions. Pt has no neuro deficits bad soft NT ND normal HEENT heart and lungs clear right wrist tenderness and mild swelling. Pt has ulnar aspect pain - Medical Decision Making 03/05/20 05:24 XRAY wrist normal Pt has good pulses in he wrist and FROM of the fingers. ARIANE wrap applied to wrist Discharge - Discharge Information Problems reviewed: Yes Clinical Impression/Diagnosis: Wrist pain, right Low back pain Qualifiers: Chronicity: acute Back pain laterality: bilateral Sciatica presence: with sciatica Sciatica laterality: sciatica of right side Qualified Code(s): M54.41 - Lumbago with sciatica, right side Condition: Good Disposition: HOME - Additional Discharge Information Prescriptions: Methocarbamol [Robaxin -] 500 mg PO BID PRN #10 tablet PRN Reason: Back Pain - Follow up/Referral Referrals: Abel Villalobos MD [Staff Physician] - Maryana Kyle [Primary Care Provider] - - Patient Discharge Instructions Patient Printed Discharge Instructions: DI for Wrist Sprain, How to Prevent Falls, DI for Back Spasm Additional Instructions: You were seen in the ER today for back pain and wrist pain. The results of your imaging today did not show a fracture and your pain is likely due to back spasm and wrist sprain. Please follow-up with your primary care doctor within 1-2 days, and orthopedics as needed, to discuss your visit and make sure your symptoms have improved. Please return to the ER if you have any worsening pain, development of fevers or chills, loss of consciousness, inability to tolerate food or fluids, or any other concerns. I have sent medications to your pharmacy. Please take these medications as prescribed. You can take tylenol or motrin every 4-6 hours as needed for pain. - Post Discharge Activity
[2020-03-05] MEDS ORDERED: ACETAMINOPHEN 325 MG TABLET (FP) ONE (02:04)
[2020-03-05] MEDS ORDERED: METHOCARBAMOL 500 MG TABLET ONE (02:05)
[2020-03-05] MEDS ORDERED: LIDOCAINE 5% TOPICAL PATCH ONE (02:07)
[2020-03-05 03:50] VITALS: BP 138/71; PULSE 62; TEMP 98.3
[2020-03-05] MEDS ORDERED: LIDOCAINE PATCH REMOVAL MC SCH (22:00)
== END 2020-03-05 03:51 | disposition home or self-care (01) ==
LOC: JER 00:34
DX: M54.41 Lumbago with sciatica, right side (principal); M25.531 Pain in right wrist
CPT/HCPCS: 73110-TC-RT-FY; 73130-TC-RT-FY; 99284-25

== ENCOUNTER 2023-02-01 23:11 | Emergency (ER) | payer OTHER ==
[~2023-02-01 23:11] MED LIST: LIDOCAINE PATCH REMOVAL MC SCH
[2023-02-01 23:18] VITALS: BP 139/74; PULSE 65; RESP 18; TEMP 98.9; BMI 31.0
[2023-02-01] MEDS ORDERED: LIDOCAINE 5% TOPICAL PATCH TP ONE (23:55)
[2023-02-01] MEDS ORDERED: predniSONE 20 MG TABLET (UD) PO ONE (23:56)
[2023-02-01] MEDS ORDERED: KETOROLAC TROMETHAMINE 60 MG/2 ML VIAL IM ONE (23:56)
[2023-02-01] MEDS ORDERED: CYCLOBENZAPRINE HCL 5 MG TABLET ONE (23:58)
[2023-02-01] MEDS ORDERED: LIDOCAINE 5% TOPICAL PATCH ONE (23:58)
[2023-02-01] MEDS ORDERED: KETOROLAC TROMETHAMINE 60 MG/2 ML VIAL ONE (23:58)
[2023-02-01] MEDS ORDERED: predniSONE 20 MG TABLET (UD) ONE (23:59)
[2023-02-02] MEDS ORDERED: CYCLOBENZAPRINE HCL 5 MG TABLET PO SCH (10:00)
== END 2023-02-02 00:08 | disposition home or self-care (01) ==
LOC: FER 23:11
PROC: 3E0233Z Introduction of Anti-inflammatory into Muscle, Percutaneous Approach (ICD-10-PCS; principal; 2023-02-01)
DX: M54.6 Pain in thoracic spine (principal)
CPT/HCPCS: 99284-25

== ENCOUNTER 2023-05-22 18:12 | Emergency (ER) | payer OTHER ==
[2023-05-22 18:17] VITALS: BP 137/75; PULSE 73; RESP 18; TEMP 98.2; BMI 31.8
== END 2023-05-22 19:16 | disposition home or self-care (01) ==
LOC: JER 18:12
DX: K62.5 Hemorrhage of anus and rectum (principal); K59.00 Constipation, unspecified; K64.4 Residual hemorrhoidal skin tags; K92.1 Melena
CPT/HCPCS: 99282-25

== ENCOUNTER 2023-08-05 05:23 | Day surgery (SDC) | payer OTHER ==
[2023-07-29 11:16] VITALS: BMI 33.3
[2023-08-05 10:39] VITALS: TEMP 97.7
[2023-08-05 11:06] VITALS: BP 150/75; PULSE 64; RESP 18
== END 2023-08-05 11:28 | disposition home or self-care (01) ==
LOC: JASU-ENDO 05:23
PROVIDERS: ATTEND Internal Medicine Gastroenterology
PROC: 0DB78ZX Excision of Stomach, Pylorus, Via Natural or Artificial Opening Endoscopic, Diagnostic (ICD-10-PCS; 2023-08-05)
PROC: 0DB68ZX Excision of Stomach, Via Natural or Artificial Opening Endoscopic, Diagnostic (ICD-10-PCS; 2023-08-05)
PROC: 0DB48ZX Excision of Esophagogastric Junction, Via Natural or Artificial Opening Endoscopic, Diagnostic (ICD-10-PCS; principal; 2023-08-05 10:15)
DX: K21.00 Gastro-esophageal reflux disease with esophagitis, without bleeding (principal); K29.50 Unspecified chronic gastritis without bleeding; Z98.84 Bariatric surgery status; E11.9 Type 2 diabetes mellitus without complications; Z79.84 Long term (current) use of oral hypoglycemic drugs; Z79.85 Long-term (current) use of injectable non-insulin antidiabetic drugs
CPT/HCPCS: 36415; 81025; 82103; 82390; 82962; 83516; 86038; 88305-TC; 88342-TC

== ENCOUNTER 2025-03-01 10:43 | Emergency (ER) | payer OTHER ==
[2025-03-01 10:53] VITALS: BP 131/74; PULSE 70; RESP 18; TEMP 97.5; BMI 27.3
[2025-03-01] MEDS ORDERED: ACETAMINOPHEN 325 MG TABLET (FP) ONE (11:43)
[2025-03-01] MEDS ORDERED: KETOROLAC TROMETHAMINE 15 MG/ML VIAL ONE (11:44)
[2025-03-01] MEDS ORDERED: LIDOCAINE 5% TOPICAL PATCH ONE (11:44)
[2025-03-01] MEDS: LIDOCAINE 5% TOPICAL PATCH TP ONE (12:08)
[2025-03-01] MEDS: KETOROLAC TROMETHAMINE 15 MG/ML VIAL IM ONE (12:08)
[2025-03-01] MEDS: ACETAMINOPHEN 325 MG TABLET (FP) PO ONE (12:09)
[2025-03-01] MEDS ORDERED: LIDOCAINE PATCH REMOVAL MC ONE (22:00)
== END 2025-03-01 12:40 | disposition home or self-care (01) ==
LOC: FER 10:43
PROC: 3E0233Z Introduction of Anti-inflammatory into Muscle, Percutaneous Approach (ICD-10-PCS; principal; 2025-03-01)
DX: M54.9 Dorsalgia, unspecified (principal)
CPT/HCPCS: 96372; 99284-25